=== PATIENT | female | born 1950 | race Caucasian/White ===

== ENCOUNTER 2016-11-19 09:53 | Day surgery (SDC) | payer OTHER, BC ==
[~2016-11-19] VITALS: Ht 172.7 cm; Wt 147.0 kg
[~2016-11-19 09:53] MED LIST: AMOX TR-K CLV1 EAC4 PO; ASPIR-TRIN325 M1 PO; ASPIRIN81 M2 PO; CELEBREX200 MG PO; CELECOXIB200 MG PO; CRESTOR5 MG PO; CYCLOBENZAPRINE10 MG PO; DICLOFENAC SODI50 MG PO; DILAUDID2 MG PO; ENBREL50 MG/1 ML SC; ERGOCALCIF50000 UNIT PO; Ecotrin PO; Enbrel SC; FEOSOL325 MG PO; FLEXERIL10 MG PO; HYDROCODON-ACE1 EA12 PO; HYDROCODON-ACE1 EAC7 PO; HYDROCODON-ACE1 EAC8 PO; IRON325 M1 PO; LEXAPRO20 MG PO; LISINOPRIL10 MG PO; LO-DOSE ASPIRIN81 M2 PO; LOVENOX40 MG/0.4 SC; Lopressor PO; METOPROLOL TART50 MG PO; OXYCONTIN10 MG PO; PREDNISOLONE SOD5 ML BOTH EYES; PREVACID SOLUTA30 MG PO; Prevacid PO; SENOKOT S,PE1 TABLET PO; STOOL SOFTENER100 M1 PO; THERAGRAN1 TABLET PO; VOLTAREN50 MG PO; Vicodin,Lortab 5/500 PO; Vitamin D, Drisdol PO; Zestril,Prinivil PO
== END 2016-11-19 16:20 | disposition home or self-care (01) ==
LOC: CATH 09:53
DX: I25.10 Atherosclerotic heart disease of native coronary artery without angina pectoris (principal); R94.39 Abnormal result of other cardiovascular function study; R06.00 Dyspnea, unspecified; E78.5 Hyperlipidemia, unspecified; I10 Essential (primary) hypertension; E66.01 Morbid (severe) obesity due to excess calories; Z79.82 Long term (current) use of aspirin
CPT/HCPCS: 93005; C1769; C1887; J1644; J2250; J3010

== ENCOUNTER → 2016-12-08 | Outpatient (CLI) | payer OTHER, BC ==
[~2016-12-08] VITALS: Ht 172.7 cm; Wt 146.5 kg
[~2016-12-08] MED LIST changes: +HUMIRA40 MG/0.1 SC
== END | disposition home or self-care (01) ==
LOC: AMB 13:24
DX: R13.10 Dysphagia, unspecified (principal); K31.7 Polyp of stomach and duodenum; K22.8 Other specified diseases of esophagus; K22.4 Dyskinesia of esophagus; K25.9 Gastric ulcer, unspecified as acute or chronic, without hemorrhage or perforation; I10 Essential (primary) hypertension; E66.9 Obesity, unspecified; Z68.43 Body mass index [BMI] 50.0-59.9, adult; Z86.010 Personal history of colon polyps; Z79.82 Long term (current) use of aspirin; Z79.899 Other long term (current) drug therapy; Z96.653 Presence of artificial knee joint, bilateral
CPT/HCPCS: 88305; 88342 TC

== ENCOUNTER → 2017-06-29 | Outpatient (CLI) | payer OTHER, BC | END | disposition home or self-care (01) | LOC: AMB 13:28 | PROC: 0DBN8ZX Excision of Sigmoid Colon, Via Natural or Artificial Opening Endoscopic, Diagnostic (ICD-10-PCS; principal; 2017-06-29) | DX: Z12.11 Encounter for screening for malignant neoplasm of colon (principal); K63.5 Polyp of colon; Z86.010 Personal history of colon polyps; K64.8 Other hemorrhoids; K57.30 Diverticulosis of large intestine without perforation or abscess without bleeding; I10 Essential (primary) hypertension; F41.8 Other specified anxiety disorders; E66.9 Obesity, unspecified; K22.4 Dyskinesia of esophagus; K21.9 Gastro-esophageal reflux disease without esophagitis; Z79.82 Long term (current) use of aspirin | CPT/HCPCS: 88305 ==